=== PATIENT | female | born 1970 | race Caucasian/White ===

== ENCOUNTER 2021-02-01 04:42 | Day surgery (SDC) | payer OTHER ==
[2021-01-26 14:40] VITALS: BMI 24.6
[2021-02-01 10:20] VITALS: TEMP 98
[2021-02-01 11:13] VITALS: BP 95/56; PULSE 69
== END 2021-02-01 11:13 | disposition home or self-care (01) ==
LOC: JASU-ENDO 04:42
PROVIDERS: ATTEND Internal Medicine Gastroenterology
PROC: 0DJD8ZZ Inspection of Lower Intestinal Tract, Via Natural or Artificial Opening Endoscopic (ICD-10-PCS; principal; 2021-02-01 09:45)
DX: Z12.11 Encounter for screening for malignant neoplasm of colon (principal); K64.8 Other hemorrhoids
CPT/HCPCS: 81025